=== PATIENT | female | born 1965 | race Caucasian/White ===

== ENCOUNTER 2024-05-18 22:06 | Emergency (ER) | payer BC, SELFPAY ==
--- NOTE | ~2024-05-18 | US_ITS ---
CLINICAL HISTORY: RUQ pain US abdomen limited Comparison: None Findings: The visualized pancreas is normal. The aorta and inferior vena cava are normal caliber. The liver is normal in size and echotexture. There is no intrahepatic bile duct dilatation. The common duct is 4 mm in diameter. Cholelithiasis. No gallbladder wall thickening or pericholecystic fluid. No sonographic Irene's sign. The main portal vein is antegrade. Right kidney normal 11.4 cm in length. No ascites. IMPRESSION: Cholelithiasis without findings of acute cholecystitis. This document has been electronically signed by: Lis Santos MD on 05/19/2024 01:52:23
[2024-05-18 22:11] VITALS: BP 181/84; PULSE 96; RESP 20; TEMP 36.6; O2SAT 99; BMI 27.5
[2024-05-18 23:08] LABS: MANUAL DIFF FLAG NO
[2024-05-18 23:13] LABS: Basophils Absolute Auto 0.1 X10*3/uL (0.0-0.2); Basophils Percent Auto 0.7 % (0-2); Eosinophils Absolute Auto 0.1 X10*3/uL (0.0-0.4); Eosinophils Percent Auto 1.1 % (0-4); Hematocrit 41.6 % (37.0-47.0); Hemoglobin 14.2 g/dl (12.0-16.0); Imm Gran Abs Auto 0.02 X10*3/uL (0.00-0.03); Imm Gran Pct Auto 0.3 % (0.0-0.4); Lymphocytes Absolute Auto 1.8 X10*3/uL (1.2-4.9); Lymphocytes Percent Auto 24.8 % (20-40); Mean Corpuscular HGB Conc 34.1 g/dl (31.0-35.0); Mean Corpuscular Volume 87.9 fL (80.0-98.0); Mean Platelet Volume 11.6 fL (9.4-12.3); Monocytes Absolute Auto 0.5 X10*3/uL (0.1-1.2); Neutrophils Absolute Auto 4.8 x10*3/uL (2.0-8.3); Neutrophils Percent Auto 66.1 % (45-73); Platelet Count 194 X10*3/uL (160-400); Red Blood Count 4.73 X10*6/uL (4.20-5.50); Red Cell Distribution Width 11.9 % (11.0-16.0); White Blood Count 7.3 X10*3/uL (4.8-10.8)
[2024-05-18 23:27] LABS: Alanine Aminotransferase 22 U/L (0-31); Albumin Level 4.4 g/dL (3.5-5.0); Alkaline Phosphatase 63 U/L (39-117); Anion Gap 14 (12-20); Aspartate Amino Transferase 19 U/L (5-31); Bilirubin Total 0.2 mg/dL (0.0-1.0); Blood Urea Nitrogen 22 mg/dL (9-16); Calcium 9.9 mg/dL (8.4-10.2); Carbon Dioxide 25 mmol/L (22-29); Chloride 105 mmol/L (96-108); Creatinine Clr Calc Pharmacy 59.9; Estimated Glomerular Filt Rate 56; Glucose Random 117 mg/dL (60-115); Potassium 4.1 mmol/L (3.3-5.1); Sodium 140 mmol/L (135-145); Total Protein 7.9 g/dL (6.5-8.0)
--- NOTE | 2024-05-19 00:34 | ECG_ITS ---
Test Reason : ABD PAIN Blood Pressure : */* mmHG Vent. Rate : 89 BPM Atrial Rate : 89 BPM P-R Int : 154 ms QRS Dur : 92 ms QT Int : 352 ms P-R-T Axes : 70 41 50 degrees QTcB Int : 428 ms Normal sinus rhythm Normal ECG No previous ECGs available Referred By: Sandy Harper Electronically Signed By: Say Hawk
[2024-05-19 00:49] LABS: Lipase 44 U/L (8-78)
[2024-05-19 00:58] LABS: Troponin-I High Sensitivity < 2.7 ng/L (<3.5-17.0)
--- NOTE | 2024-05-19 01:13 | ED_ITS ---
HPI - Abdominal Pain General Chief Complaint: Abdominal Pain Stated Complaint: rt side under rib cage pain Time Seen by Provider: 05/19/24 00:36 Source: patient and old records reviewed Mode of arrival: ambulatory Limitations: no limitations History of Present Illness ED Provider: JOSÉ HPI narrative: 58 yo female with PMH of HTN who ate breakfast this AM and then about 1 hour later had intense RUQ pain which wrapped around. No n/v/d fevers. NO issues urinating. She took motrin around 730 with some relief. The pain came in waves in the waiting room then improved. She now has no pain. This has never happened before. MD elicited complaint: abdominal pain Pertinent past history: none Onset (ago): hour(s) (several) Pain Consistency: now resolved Location: RUQ Severity: moderate Quality: stabbing Radiation: R flank Migration to: no migration Exacerbating factors: nothing Relieving factors: nothing Associated symptoms: denies other symptoms Treatments prior to arrival: NSAIDs Related Data Allergies Allergy/AdvReac Type Severity Reaction Status Date / Time No Known Allergies Allergy Verified 05/18/24 22:12 Review of Systems Review of Systems Constitutional : No Fever, No Chills, No Fatigue ENT/Mouth : No sore throat, No Rhinorrhea Eyes: No Eye Pain, No Swelling, No Redness Cardiovascular : No Chest Pain, No SOB, No Dyspnea on Exertion Respiratory : No Cough, No Sputum Gastrointestinal : No Nausea, No Vomiting, No Diarrhea, pos abdominal Pain Genitourinary : No Dysuria, No Urinary Frequency, No Hematuria, Musculoskeletal : No joint pain, No Myalgias, No Joint Swelling Skin : No Skin Lesions, No rash Neuro : No Weakness, No Numbness, No Dizziness, no Headache Psych : No Anxiety/Panic, No Depression Heme/Lymph: No Bruising, No Bleeding,No Lymphadenopathy Endocrine : No Polyuria, No Polydipsia All other systems reviewed and are negative [facility] Past Medical History Attestation statement: The following information was validated with the patient. Source: old records reviewed Medical History (Updated 05/19/24 @ 01:18 by Sandy Harper DO) HTN (hypertension) Social History Social History (Updated 05/19/24 @ 01:18 by Sandy Harper DO) Patient Tobacco Use Status: Never used Tobacco Physical Exam ED Vital Signs: Vital Signs - 24 hr 05/18/24 22:11 Temperature 97.8 F Pulse Rate 96 Respiratory Rate 20 Blood Pressure 181/84 H Pulse Oximetry 99 Oxygen Delivery Method Room Air BMI result Body Mass Index 27.5 Appearance: Alert. Oriented X3. No acute distress. Eyes: Pupils equal, round and reactive to light. ENT: Pharynx normal. Neck: Normal inspection. Neck supple. CVS: Normal heart rate and rhythm. Pulses normal. Respiratory: No respiratory distress. Breath sounds normal. Abdomen: Soft and nontender. neg lind's sign Skin: Skin warm and dry. Normal skin color. Normal skin turgor. Extremities: No lower extremity edema. No calf ttp Neuro: Oriented X 3. No motor deficit. No sensory deficit. CN2-12 intact Medical Decision Making Medical Decision Making [facility] Narrative: 58 yo female with PMH here with resolved RUQ Pain on exam no ttp and neg lind's sign no signs of jaundice at this time will need EKG, basic labs, US to evaluate for GB pathology - seems it could be gastritis, biliary colic, gaseous distention. Differential Diagnosis Differential Diagnoses: The differential diagnosis associated with the presentation includes biliary colic, gastritis Admission/Observation Consideration of admission/observation: Escalation of care including admission/observation considered work up negative and pain free refer to surgery and instruct low fat diet Lab Data [facility] Lab Attestation statement: I reviewed the patient's lab results. 05/18/24 23:04 05/18/24 23:04 Labs: Lab Results 05/18/24 Range/Units 23:04 WBC 7.3 (4.8-10.8) X10*3/uL RBC 4.73 (4.20-5.50) X10*6/uL Hgb 14.2 (12.0-16.0) g/dl Hct 41.6 (37.0-47.0) % MCV 87.9 (80.0-98.0) fL MCH 30.0 (27.0-33.0) pg MCHC 34.1 (31.0-35.0) g/dl RDW 11.9 (11.0-16.0) % Plt Count 194 (160-400) X10*3/uL MPV 11.6 (9.4-12.3) fL Immature Gran % (Auto) 0.3 (0.0-0.4) % Neut % (Auto) 66.1 (45-73) % Lymph % (Auto) 24.8 (20-40) % [place] % (Auto) 7.0 (2-11) % Eos % (Auto) 1.1 (0-4) % Baso % (Auto) 0.7 (0-2) % Lymph # (Auto) 1.8 (1.2-4.9) X10*3/uL [place] # (Auto) 0.5 (0.1-1.2) X10*3/uL Eos # (Auto) 0.1 (0.0-0.4) X10*3/uL Baso # (Auto) 0.1 (0.0-0.2) X10*3/uL Abs Immat Gran (auto) 0.02 (0.00-0.03) X10*3/uL Absolute Neuts (auto) 4.8 (2.0-8.3) x10*3/uL Absolute Nucleated RBC 0.000 (0.0-0.012) X10*3/uL Nucleated RBC % (auto) 0.0 (0.0-0.2) /100WBC Sodium 140 (135-145) mmol/L Potassium 4.1 (3.3-5.1) mmol/L Chloride 105 (96-108) mmol/L Carbon Dioxide 25 (22-29) mmol/L Anion Gap 14 (12-20) BUN 22 H (9-16) mg/dL Creatinine 1.01 (0.5-1.4) mg/dL Estim Creat Clear Calc 59.9 Estimated GFR 56 Random Glucose 117 H (60-115) mg/dL Calcium 9.9 (8.4-10.2) mg/dL Total Bilirubin 0.2 (0.0-1.0) mg/dL AST 19 (5-31) U/L ALT 22 (0-31) U/L Alkaline Phosphatase 63 (39-117) U/L Troponin I High Sens < 2.7 (<3.5-17.0) ng/L Total Protein 7.9 (6.5-8.0) g/dL Albumin 4.4 (3.5-5.0) g/dL Lipase 44 (8-78) U/L Independent Interpretation I performed an independent interpretation of an: EKG and Ultrasound (biliary ) Interpretation: Rate: 89 Rhythm: NSR [place]: normal Normal P waves. Normal KATERINE. Normal QRS complex. ST T wave : normal no ARSENIO qTC:428 prior studies: no acute ischemia The study has been interpreted contemporaneously by me. . Radiology Impression Discussion of test interpretation with radiology: I have reviewed the radiologist's reading. Independent Historian Clinical information obtained from an independent historian. History obtained from or confirmed by: Spouse External Record Review External record reviewed: Outpatient record Prescription Management I considered prescription management with: Pain Medication Discharge Plan Discharge Clinical Impression: Biliary colic Patient Disposition: Home, Self-Care Instructions: Biliary Colic (ED), Low Fat Diet (ED) Additional Instructions: labs and EKG reassuring ultrasound shows gallstones eat a low fat diet even good fats can cause pain return for fevers, vomiting, yellow eyes, return of pain call and follow up with surgeon to establish care Referrals: [facility] [place] General Surgeons [Provider Group] Stand Alone Forms: Work/School Release Print Language: Fijian
[2024-05-19 01:14] VITALS: BP 150/79; PULSE 92; RESP 18; TEMP 36.6; O2SAT 97
[2024-05-19 01:26] VITALS: BP 150/79; PULSE 92; RESP 18; TEMP 36.6; O2SAT 97
== END 2024-05-19 01:27 | disposition home or self-care (01) ==
PROVIDERS: Emergency Provider Emergency Medicine; PCP Internal Medicine
DX: K80.50 Calculus of bile duct without cholangitis or cholecystitis without obstruction (principal); R10.2 Pelvic and perineal pain; R07.89 Other chest pain; R10.11 Right upper quadrant pain; Z79.899 Other long term (current) drug therapy
CPT/HCPCS: 36415; 76705; 80053; 83690; 84484; 85025; 93005; 99284

== ENCOUNTER → 2024-05-19 00:34 | Outpatient (BNV) | payer BC, SELFPAY | PROVIDERS: Emergency Provider Emergency Medicine; PCP Internal Medicine; Visit Provider Internal Medicine Cardiovascular Disease | DX: R10.9 Unspecified abdominal pain (principal) | CPT/HCPCS: 93010 ==

== ENCOUNTER → 2024-05-19 00:35 | Outpatient (BNV) | payer BC, SELFPAY | PROVIDERS: Emergency Provider Emergency Medicine; PCP Internal Medicine; Visit Provider Radiology Diagnostic Radiology | DX: K80.20 Calculus of gallbladder without cholecystitis without obstruction (principal) | CPT/HCPCS: 76705 ==

== ENCOUNTER 2024-07-05 19:30 | Emergency (ER) | payer BC, SELFPAY ==
--- NOTE | ~2024-07-05 | US_ITS ---
CLINICAL HISTORY: RUQ pain, nausea, hx gallstones Exam: Ultrasound of the gallbladder. Comparison: US - US ABDOMEN LIMITED - 05/19/24 00:46 EST Findings: Numerous layering dependent small stones are identified within the gallbladder as before. No gallbladder wall thickening or pericholecystic fluid. Reported positive sonographic Irene's sign. Common bile duct is within normal limits. No free fluid. IMPRESSION: Cholelithiasis with a reported positive sonographic Irene's sign. Given the lack of gallbladder wall thickening or pericholecystic fluid, suspicion for cholecystitis is low. Positive sonographic Irene's sign is likely related to biliary colic. This document has been electronically signed by: Tomas March MD on 07/05/2024 21:25:01
[2024-07-05 19:53] VITALS: BP 166/89; PULSE 77; RESP 18; TEMP 36.6; O2SAT 100; BMI 27.4
--- NOTE | 2024-07-05 19:53 | ED_ITS ---
HPI - Abdominal Pain General Chief Complaint: Abdominal Pain Stated Complaint: Right side pain ?Gallbladder Time Seen by Provider: 07/06/24 00:31 Source: patient, RN notes reviewed and old records reviewed Mode of arrival: ambulatory Limitations: no limitations History of Present Illness ED Provider: Elissa HPI narrative: 58-year-old female with past medical history significant for cholelithiasis, hypertension presents for evaluation of upper abdominal pain. Patient was seen here a month and a half ago and diagnosed with gallstones. She reports that she has been doing well watching her diet. Today she ate fried chicken this afternoon and developed severe right upper abdominal pain around 5:00 p.m.. The pain lasted for several hours and has since resolved. She had some associated nausea without vomiting. Currently she denies any pain Her pain improved with Motrin Denies any history abdominal surgeries. Denies any fevers, chills She has an appointment with General surgery on August 12. Related Data Allergies Allergy/AdvReac Type Severity Reaction Status Date / Time No Known Allergies Allergy Verified 07/05/24 19:57 Review of Systems Constitutional: Denies body ache(s), Denies chills and Denies fever(s) Eyes: Denies blurry vision Cardiovascular: Denies chest pain Gastrointestinal: Reports abdominal pain, Reports nausea and Denies vomiting Genitourinary: Denies pelvic pain Musculoskeletal: Denies back pain Skin/Breast: Denies rash Psychiatric: Denies anxiety PMFSH Past Medical History Medical History (Updated 07/06/24 @ 00:51 by Yosef Bowers) HTN (hypertension) Social History Social History (Updated 05/19/24 @ 01:18 by Sandy Harper DO) Patient Tobacco Use Status: Never used Tobacco Advance Directives: No Advance Directives Information Provided: Yes Physical Exam ED Vital Signs: Vital Signs - 24 hr 07/05/24 19:53 Temperature 97.8 F Pulse Rate 77 Respiratory Rate 18 Blood Pressure 166/89 H Pulse Oximetry 100 Oxygen Delivery Method Room Air BMI result Body Mass Index 27.4 Const General: healthy appearing, comfortable, no acute distress, alert and awake Nutritional Appearance: well nourished Orientation/consciousness: patient oriented x3 HENMT Head: Yes normocephalic and Yes atraumatic Throat: Yes posterior oropharynx normal Eyes Eyelids: Yes eyelids normal Conjunctivae: conjunctivae normal Sclerae: sclerae normal Corneas: corneas normal Pupils: Equal, round and reactive pupils present EOM: EOMs intact bilaterally Neck Neck: Yes full ROM Resp Effort & Inspection: normal respiratory effort, able to speak in complete sentences and not labored GI Other: Negative Irene's sign Inspection: No distended Palpation (GI): Soft to palpation, not firm, nontender, no guarding and not rigid Auscultation: normoactive bowel sounds Skin General skin exam: no rashes or lesions noted and elasticity normal Neuro General: patient oriented x3 Cranial nerves: Yes Equal, round and reactive pupils present and Yes Bilaterally intact EOM present Cognition (Neuro): normal cognition Extrem Other: Moving all extremities well without any obvious deformities Course Course Course Narrative: This is an RME performed by Genaro Sibley CNP: Additional HPI, ROS, PE not included below will be deferred to primary provider. Patient is a 58-year-old female who presents to the emergency department for evaluation severe RUQ pain. Reports onset at 12:00 this afternoon, was mild in nature, had a chicken sandwich around 17:00 with severe worsening of pain associated nausea but no vomiting. She admits to a history of similar symptoms in the past evaluated in May of 2024 found to be secondary to her gallbladder, has outpatient appointment scheduled with General surgery 08/12/2024. Has had no further reoccurrence of pain since her initial ED visit. On exam + RUQ pain, TTP, + irene sign, no fever, no jaundice Plan: Serum labs, right upper quadrant ultrasound Medical Decision Making Medical Decision Making [facility] Narrative: 58-year-old female with past medical history as above presenting for evaluation of abdominal pain. Her pain has resolved but was postprandial in nature. Her pain was right upper quadrant, she was negative Irene's sign. No current later quadrant tenderness. She had an ultrasound ordered in triage that does not show any evidence of cholecystitis.. The patient was a difficult stick, plan to check labs including LFTs, if they are elevated, she may require admission for an MRCP, but with normal LFTs and currently pain-free she can likely be discharged to follow up as an outpatient Differential Diagnosis Differential Diagnoses: The differential diagnosis associated with the presentation includes Biliary colic Cholelithiasis Acute cholecystitis Choledocholithiasis Lab Data [facility] Lab Attestation statement: I reviewed the patient's lab results. No leukocytosis or anemia. Normal platelet count. No significant electrolyte abnormalities warranting intervention. Liver function tests within normal limits 07/06/24 00:49 07/06/24 00:49 Labs: Lab Results 07/06/24 Range/Units 00:49 WBC 6.3 (4.8-10.8) X10*3/uL RBC 4.35 (4.20-5.50) X10*6/uL Hgb 13.4 (12.0-16.0) g/dl Hct 37.8 (37.0-47.0) % MCV 86.9 (80.0-98.0) fL MCH 30.8 (27.0-33.0) pg MCHC 35.4 H (31.0-35.0) g/dl RDW 12.0 (11.0-16.0) % Plt Count 182 (160-400) X10*3/uL MPV 11.4 (9.4-12.3) fL Immature Gran % (Auto) 0.2 (0.0-0.4) % Neut % (Auto) 71.6 (45-73) % Lymph % (Auto) 21.1 (20-40) % [place] % (Auto) 6.3 (2-11) % Eos % (Auto) 0.3 (0-4) % Baso % (Auto) 0.5 (0-2) % Lymph # (Auto) 1.3 (1.2-4.9) X10*3/uL [place] # (Auto) 0.4 (0.1-1.2) X10*3/uL Eos # (Auto) 0.0 (0.0-0.4) X10*3/uL Baso # (Auto) 0.0 (0.0-0.2) X10*3/uL Abs Immat Gran (auto) 0.01 (0.00-0.03) X10*3/uL Absolute Neuts (auto) 4.5 (2.0-8.3) x10*3/uL Absolute Nucleated RBC 0.000 (0.0-0.012) X10*3/uL Nucleated RBC % (auto) 0.0 (0.0-0.2) /100WBC Sodium 143 (135-145) mmol/L Potassium 4.2 (3.3-5.1) mmol/L Chloride 108 (96-108) mmol/L Carbon Dioxide 27 (22-29) mmol/L Anion Gap 12 (12-20) BUN 18 H (9-16) mg/dL Creatinine 0.77 (0.5-1.4) mg/dL Estim Creat Clear Calc 78.5 Estimated GFR > 60 Random Glucose 122 H (60-115) mg/dL Calcium 9.7 (8.4-10.2) mg/dL Total Bilirubin 0.2 (0.0-1.0) mg/dL Direct Bilirubin < 0.2 (0.0-0.5) mg/dL AST 22 (5-31) U/L ALT 19 (0-31) U/L Alkaline Phosphatase 62 (39-117) U/L Total Protein 7.6 (6.5-8.0) g/dL Albumin 4.2 (3.5-5.0) g/dL Lipase 25 (8-78) U/L Discharge Plan Discharge Clinical Impression: Biliary colic Patient Disposition: Home, Self-Care Instructions: Biliary Colic (ED) Additional Instructions: Your ultrasound showed gallstones but no evidence of infection. Your blood work was reassuring I recommend that you call your surgeon on Sunday to let them know your pain has worsened and they may expedite your appointment You may use ibuprofen or Tylenol as needed for pain Print Language: [place]
[2024-07-06 00:56] LABS: MANUAL DIFF FLAG NO
[2024-07-06 00:57] LABS: Basophils Percent Auto 0.5 % (0-2); Eosinophils Percent Auto 0.3 % (0-4); Hematocrit 37.8 % (37.0-47.0); Hemoglobin 13.4 g/dl (12.0-16.0); Imm Gran Abs Auto 0.01 X10*3/uL (0.00-0.03); Imm Gran Pct Auto 0.2 % (0.0-0.4); Lymphocytes Absolute Auto 1.3 X10*3/uL (1.2-4.9); Lymphocytes Percent Auto 21.1 % (20-40); Mean Corpuscular HGB Conc 35.4 g/dl (31.0-35.0); Mean Corpuscular Hemoglobin 30.8 pg (27.0-33.0); Mean Corpuscular Volume 86.9 fL (80.0-98.0); Mean Platelet Volume 11.4 fL (9.4-12.3); Monocytes Absolute Auto 0.4 X10*3/uL (0.1-1.2); Monocytes Percent Auto 6.3 % (2-11); Neutrophils Absolute Auto 4.5 x10*3/uL (2.0-8.3); Neutrophils Percent Auto 71.6 % (45-73); Platelet Count 182 X10*3/uL (160-400); Red Blood Count 4.35 X10*6/uL (4.20-5.50); White Blood Count 6.3 X10*3/uL (4.8-10.8)
[2024-07-06 01:18] LABS: Alanine Aminotransferase 19 U/L (0-31); Albumin Level 4.2 g/dL (3.5-5.0); Anion Gap 12 (12-20); Aspartate Amino Transferase 22 U/L (5-31); Bilirubin Direct < 0.2 mg/dL (0.0-0.5); Bilirubin Total 0.2 mg/dL (0.0-1.0); Blood Urea Nitrogen 18 mg/dL (9-16); Calcium 9.7 mg/dL (8.4-10.2); Carbon Dioxide 27 mmol/L (22-29); Chloride 108 mmol/L (96-108); Creatinine Clr Calc Pharmacy 78.5; Estimated Glomerular Filt Rate > 60; Glucose Random 122 mg/dL (60-115); Lipase 25 U/L (8-78); Potassium 4.2 mmol/L (3.3-5.1); Sodium 143 mmol/L (135-145); Total Protein 7.6 g/dL (6.5-8.0)
[2024-07-06 01:19] LABS: Alkaline Phosphatase 62 U/L (39-117)
[2024-07-06 02:08] VITALS: BP 140/86; PULSE 83; RESP 16; TEMP 36.7; O2SAT 96
== END 2024-07-06 02:09 | disposition home or self-care (01) ==
PROVIDERS: Nurse Practitioner Family; Emergency Provider Internal Medicine
DX: K80.50 Calculus of bile duct without cholangitis or cholecystitis without obstruction (principal); R10.11 Right upper quadrant pain; R11.0 Nausea; I10 Essential (primary) hypertension
CPT/HCPCS: 36415; 76705; 80048; 80076; 83690; 85025; 99284

== ENCOUNTER → 2024-07-05 19:56 | Outpatient (BNV) | payer BC, SELFPAY | PROVIDERS: Visit Provider Radiology Diagnostic Radiology | DX: K80.20 Calculus of gallbladder without cholecystitis without obstruction (principal) | CPT/HCPCS: 76705 ==